=== PATIENT | male | born 1970 | race African-American/Black ===

== ENCOUNTER 2016-07-22 18:50 | Emergency (ER) | payer OTHER ==
[~2016-07-22] VITALS: Ht 182.9 cm; Wt 164.0 kg
[~2016-07-22 18:50] MED LIST: AMLO10 PO; GLUC10TA3 PO; METF-324 PO; PRIN10TA PO; PROT40TA PO; ZANTTAB9 PO
[2016-07-22 18:51] VITALS: BP 187/114; PULSE 78; RESP 17; TEMP 98.4; O2SAT 98
[2016-07-22] MEDS ORDERED: AMLO10 PO (20:41)
[2016-07-22] MEDS ORDERED: METF1000 PO (20:41)
[2016-07-22] MEDS ORDERED: LISI10TA3 PO (20:41)
[2016-07-22] MEDS ORDERED: GLIP10TA6 PO (20:41)
[2016-07-22] MEDS ORDERED: PROT40TA PO (20:41)
[2016-07-22 20:42] VITALS: BP 178/105; PULSE 76; RESP 18; O2SAT 96
[2016-07-22] MEDS ORDERED: METO25TA3 PO (20:42)
[2016-07-22] MEDS ORDERED: ULTR50TA5 PO (20:56)
[2016-07-22] MEDS ORDERED: PENI500T PO (20:56)
--- NOTE | 2016-07-22 20:58 | PD ---
HPI Chief Complaint: Oral / Dental Pain or Problem Time Seen by Provider: 20:38 Travel History International Travel<30 days: No Contact w/Intl Traveler<30days: No Traveled to known affect area: No History of Present Illness HPI Patient is a 46-year-old male presents the emergency department for evaluation of right mandibular dental pain as well as right ear pain. Patient states been getting gradually worse over the past few days. Denies any fever. Denies any swelling of his face. He states the pain does radiate around occipitally. Denies any difficulty swallowing or chest pain. He is currently attempting to establish with a dentist and thinks he might be able to get in to see somebody tomorrow. PFSH Past Medical History Cardiovascular Problems: Yes (HTN) Diabetes: Yes Patient Takes Glucophage: Yes Diminished Hearing: No Gastrointestinal Disorders: Yes (GASTRIC REFLUX) GERD: Yes Hypertension: Yes Tetanus Vaccination: < 5 Years Influenza Vaccination: Yes Past Surgical History Abdominal Surgery: Yes (UMBILICAL AND RIGHT GROIN HERNIA REPAIR) Social History Alcohol Use: No Tobacco Use: No Substance Use: No Allergies-Medications (Allergen,Severity, Reaction): Coded Allergies: No Known Allergies (Verified , 07/22/16) Reported Meds & Prescriptions Reported Meds & Active Scripts Active Ultram (Tramadol HCl) 50 Mg Tab 50 Mg PO Q6H PRN Penicillin V Potassium 500 Mg Tab 500 Mg PO Q6H 7 Days Reported Metoprolol Tartrate 25 Mg Tab 25 Mg PO DAILY Protonix (Pantoprazole Sodium) 40 Mg Tab 40 Mg PO DAILY Metformin (Metformin HCl) 1,000 Mg Tab 1,000 Mg PO BID With meals Lisinopril 10 Mg Tab 10 Mg PO DAILY Glipizide 10 Mg Tab 10 Mg PO BID Take 30 minutes before a meal Norvasc (Amlodipine Besylate) 10 Mg Tab 10 Mg PO DAILY Review of Systems Except as stated in HPI: all other systems reviewed are Neg Physical Exam Narrative GENERAL: Well-nourished, well-developed patient. SKIN: Focused skin assessment warm/dry. HEAD: Normocephalic. EYES: No scleral icterus. No injection or drainage. ENT: Patient's first second and third mandibular molars on the right are all eroded down to the gum. The premolar on the right side has a large cavity on the posterior aspect. All these appear chronic in nature. No gum swelling is appreciated. No facial swelling, no sublingual tenderness. Patient swallows intact and nontender. NECK: Supple, trachea midline. No JVD or lymphadenopathy. CARDIOVASCULAR: Regular rate and rhythm without murmurs, gallops, or rubs. RESPIRATORY: Breath sounds equal bilaterally. No accessory muscle use. GASTROINTESTINAL: Abdomen soft, non-tender, nondistended. MUSCULOSKELETAL: No cyanosis, or edema. BACK: Nontender without obvious deformity. No CVA tenderness. Data Data Last Documented VS Vital Signs Date Time Temp Pulse Resp B/P Pulse Ox O2 Delivery O2 Flow Rate FiO2 07/22/16 20:42 76 18 178/105 96 07/22/16 18:51 98.4 Orders Oxycodone-Acetamin 5-325 Mg (Percocet (07/22/16 21:15) MDM Medical Decision Making Medical Screen Exam Complete: Yes Emergency Medical Condition: Yes Differential Diagnosis Dental pain, apical dental abscess, dental caries. Narrative Course Patient roomed in the emergency department, no drainable abscesses noted. A possible occult apical abscess is still possible. We'll start on penicillin. Small prescription for Ultram as written. Need for follow-up with a dentist is obvious. He is stable for discharge at this time. Diagnosis Primary Impression: Pain, dental Med/Other Pt SpecificInfo: Prescription(s) given Scripts Tramadol (Ultram)50 Mg Tab50 Mg PO Q6H PRN (PAIN) #12 TAB Ref 0 Prov:Andrew Clarke MD 07/22/16 Penicillin V Potassium 500 Mg [id number] Mg PO Q6H 7 Days Ref 0 Prov:Andrew Clarke MD 07/22/16 Disposition: 01 DISCHARGE HOME Condition: Stable Andrew Clarke MD Jul 22, 2016 20:58
[2016-07-22] MEDS ORDERED: oxyCODONE/ACETAMINOPHEN 5 MG/325 MG TAB PO ONE (21:15)
== END 2016-07-22 21:12 | disposition home or self-care (01) ==
LOC: NEPD 18:50
DX: K08.89 Other specified disorders of teeth and supporting structures (principal)
CPT/HCPCS: 99282

== ENCOUNTER 2016-08-06 17:41 | Emergency (ER) | payer OTHER ==
[~2016-08-06 17:41] MED LIST changes: +GLIP10TA6 PO; -GLUC10TA3 PO; +LISI10TA3 PO; -METF-324 PO; +METF1000 PO; +METO25TA3 PO; +PENI500T PO; -PRIN10TA PO; +ULTR50TA5 PO; -ZANTTAB9 PO
[2016-08-06 17:42] VITALS: BP 189/116; PULSE 86; RESP 16; TEMP 98.3; O2SAT 97
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
[2016-08-06 18:13] VITALS: BP 176/98; PULSE 86; RESP 18
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
[2016-08-06] MEDS ORDERED: ROBA500T PO (18:20)
[2016-08-06] MEDS ORDERED: IBUP800T23 PO (18:20)
[2016-08-06] MEDS ORDERED: IBUPROFEN 800 MG TAB PO ONE (18:30)
[2016-08-06] MEDS ORDERED: METHOCARBAMOL 500 MG TAB PO ONE (18:30)
== END 2016-08-06 18:33 | disposition home or self-care (01) ==
LOC: NEPK 17:41
DX: S16.1XXA Strain of muscle, fascia and tendon at neck level, initial encounter (principal); S00.83XA Contusion of other part of head, initial encounter; W50.0XXA Accidental hit or strike by another person, initial encounter; Y93.F9 Activity, other caregiving; Y92.238 Other place in hospital as the place of occurrence of the external cause; Y99.0 Civilian activity done for income or pay
CPT/HCPCS: 99283

== ENCOUNTER 2017-05-17 16:01 | Emergency (ER) | payer OTHER ==
[~2017-05-17 16:01] MED LIST changes: +IBUP1TAB7 PO; +ROBA500T PO; +TRAM50 PO; -ULTR50TA5 PO
[2017-05-17 16:03] VITALS: PULSE 92; RESP 16; TEMP 98.1; O2SAT 99
[2017-05-17] MEDS ORDERED: AMOXICILLIN/CLAVULANATE K 875 MG TAB PO ONE (16:30)
--- NOTE | 2017-05-17 16:34 | PD ---
HPI Chief Complaint: Headache Time Seen by Provider: 16:11 Travel History International Travel<30 days: No Contact w/Intl Traveler<30days: No Traveled to known affect area: No History of Present Illness HPI 47-year-old -[place] male presents emergency department with upper respiratory symptoms for the past several days with increased sinus congestion and pressure in the left maxillary sinus. He has had increased cough and nasal drainage as well as postnasal drip. He denies ear pain, fever, or chills. He denies chest pain or shortness of breath. He states he has history of sinus trouble in the past. Sinus pain is 8 out of 10. He has no known drug allergies. PFSH Past Medical History Cardiovascular Problems: Yes (HTN) Diabetes: Yes Patient Takes Glucophage: Yes Diminished Hearing: No Gastrointestinal Disorders: Yes (GASTRIC REFLUX) GERD: Yes Hypertension: Yes Tetanus Vaccination: < 5 Years Past Surgical History Abdominal Surgery: Yes (UMBILICAL AND RIGHT GROIN HERNIA REPAIR) Social History Alcohol Use: No Tobacco Use: No Substance Use: No Allergies-Medications (Allergen,Severity, Reaction): Coded Allergies: No Known Allergies (Verified Adverse Reaction, Unknown, 05/17/17) Reported Meds & Prescriptions Reported Meds & Active Scripts Active Reported Metoprolol Tartrate 25 Mg Tab 25 Mg PO DAILY Protonix (Pantoprazole Sodium) 40 Mg Tab 40 Mg PO DAILY Metformin (Metformin HCl) 1,000 Mg Tab 1,000 Mg PO BID With meals Lisinopril 10 Mg Tab 10 Mg PO DAILY Glipizide 10 Mg Tab 10 Mg PO BID Take 30 minutes before a meal Norvasc (Amlodipine Besylate) 10 Mg Tab 10 Mg PO DAILY Review of Systems General / Constitutional: No: Fever, Chills Eyes: No: Visual changes HENT: Positive: Headaches, Rhinitis, Rhinorrhea, Congestion, No: Vertigo, Lightheadedness, Sore Throat, Nosebleed, Neck Stiffness, Neck Pain, Dental Difficulties, Earache Cardiovascular: No: Chest Pain or Discomfort Respiratory: No: Shortness of Breath Gastrointestinal: No: Abdominal Pain Genitourinary: No: Dysuria Musculoskeletal: No: Pain Skin: No Rash Neurologic: No: Weakness Psychiatric: No: Depression Endocrine: No: Polydipsia Hematologic/Lymphatic: No: Easy Bruising Physical Exam Narrative GENERAL: Patient appears in no acute distress. SKIN: Warm and dry. Normal color. Normal turgor. HEAD: Atraumatic. Normocephalic. Patient has notable swelling over the left maxillary sinus. EYES: Pupils equal and round. No scleral icterus. No injection or drainage. ENT: No nasal bleeding or discharge. Mucous membranes pink and moist. TMs are clear bilaterally. Posterior pharynx shows moderate purulent nasal drip noted with cobblestoning. No significant swelling or tonsillitis. Uvula is midline. Airway is patent. Patient has tenderness with palpation to the maxillary sinuses more on the left than the right NECK: Trachea midline. Supple and nontender without significant lymphadenopathy. CARDIOVASCULAR: Regular rate and rhythm. RESPIRATORY: No accessory muscle use. Clear to auscultation. Breath sounds equal bilaterally. GASTROINTESTINAL: Abdomen soft, non-tender, nondistended. Hepatic and splenic margins not palpable. MUSCULOSKELETAL: Extremities without clubbing, cyanosis, or edema. No obvious deformities. NEUROLOGICAL: Awake and alert. No obvious cranial nerve deficits. Motor grossly within normal limits. Five out of 5 muscle strength in the arms and legs. Normal speech. PSYCHIATRIC: Appropriate mood and affect; insight and judgment normal. Data Data Last Documented VS Vital Signs Date Time Temp Pulse Resp B/P (MAP) Pulse Ox O2 Delivery O2 Flow Rate FiO2 05/17/17 16:03 98.1 92 16 99 Orders Orders Amoxicil-Clavulanate (Augmentin) (05/17/17 16:30) [facility] Medical Decision Making Medical Screen Exam Complete: Yes Emergency Medical Condition: Yes Differential Diagnosis Upper respiratory infection. Postnasal drip. Sinusitis. Narrative Course Patient is given Augmentin 875 p.o. now. Patient continued on Augmentin 875 twice daily 10 days. Patient also given Flonase nasal spray 2 sprays each nostril daily. Patient can take ibuprofen as needed for discomfort. Recommend saline nasal rinse as well. Patient to follow-up if symptoms do not improve with the above treatment plan peer Diagnosis Primary Impression: Maxillary sinusitis, acute Qualified Codes: J01.00 - Acute maxillary sinusitis, unspecified Referrals: Primary Care Physician Patient Instructions: General Instructions, Sinusitis (ED) Additional Instructions: Patient is given Augmentin 875 p.o. now. Patient continued on Augmentin 875 twice daily 10 days. Patient also given Flonase nasal spray 2 sprays each nostril daily. Patient can take ibuprofen as needed for discomfort. Recommend saline nasal rinse as well. Patient to follow-up if symptoms do not improve with the above treatment plan peer Med/Other Pt SpecificInfo: Prescription(s) given Disposition: 01 DISCHARGE HOME Condition: Stable Richard Cabrales May 17, 2017 16:34
[2017-05-17] MEDS ORDERED: AUGM875T3 PO (16:37)
[2017-05-17] MEDS ORDERED: FLUT1SPR5 EACH NARE (16:37)
== END 2017-05-17 16:56 | disposition home or self-care (01) ==
LOC: NEPK 16:01
DX: J01.00 Acute maxillary sinusitis, unspecified (principal); E11.9 Type 2 diabetes mellitus without complications; I10 Essential (primary) hypertension; Z79.84 Long term (current) use of oral hypoglycemic drugs
CPT/HCPCS: 99283